=== PATIENT | female | born 1930 | race Caucasian/White ===

== ENCOUNTER 2016-12-14 18:06 | Emergency (ER) | payer MEDICARE, OTHER ==
[~2016-12-14 18:06] MED LIST: ALDACTONE100 MG PO; ATIVAN0.5 MG PO; CATAPRES0.1 MG PO; CHILDRENS CHEWA81 MG PO; CRESTOR10 MG PO; FEOSOL325 MG PO; GAS RELIEF80 MG PO; GLUCOPHAGE1000 MG PO; LANTUS100 UNIT/1 SQ; LASIX20 MG PO; LEVAQUIN500 MG PO; NORVASC5 MG PO; NOVOLOG100 UNIT/2 SQ; ONGLYZA5 MG PO; PLAVIX75 MG PO; POTASSIUM CHLO10 ME1 PO; SENSI CARE PET113 GM TOP; TRAMADOL HCL50 MG PO
[2016-12-14 19:20] LABS: BASO % 0.3 % (0.1-1.2); EOS # 0.1 10_X3_uL (0.0-0.4); EOS % 0.9 % (0.7-5.8); GRAN % 72.8 % (34.0-71.1); HEMATOCRIT 47.8 % (34-45); HEMOGLOBIN 15.3 g/dL (11.2-15.7); LYMPH # 1.3 10_X3_uL (1.2-3.7); LYMPH % 19.1 % (19.3-51.7); MEAN CORPUSCULAR HEMOGLOBIN 28.7 pg (27.0-33.0); MEAN CORPUSCULAR VOLUME 89.7 fL (79-95); MEAN PLATELET VOLUME 11.6 fl (7.5-11.5); MONO # 0.5 10_X3_uL (0.2-0.9); MONO % 6.9 % (4.7-12.5); PLATELET COUNT 112 x10_3/uL (182-369); RED BLOOD COUNT 5.33 x10_6/uL (3.9-5.2); RED CELL DISTRIBUTION WIDTH 16.7 % (11.7-14.4); WHITE BLOOD COUNT 6.8 x10_3/uL (4.0-10.0)
[2016-12-14 19:37] LABS: ALBUMIN 4.5 gm/dL (3.4-5.0); ALKALINE PHOSPHATASE 76 U/L (50-136); ALT/SGPT 11 U/L (3.5-33.9); AMYLASE 50 U/L (15.62-74.58); AST/SGOT 18 U/L (7.04-26.96); BILIRUBIN,TOTAL 0.58 mg/dL (0.0-1.0); BLOOD UREA NITROGEN 14 mg/dL (7-18); CALCIUM 8.4 mg/dL (8.7-10.7); CARBON DIOXIDE 28 mmol/L (21-32); CREATINE KINASE 76 U/L (21-215); CREATININE 0.6 mg/dL (0.6-1.3); GLUCOSE,RANDOM 230 mg/dL (70-99); LIPASE 23 U/L (6.75-60.75); SODIUM 143 mmol/L (136-145); TOTAL PROTEIN 7.2 gm/dL (6.4-8.2)
[2016-12-14 19:38] LABS: URINE BILIRUBIN NEGATIVE (NEGATIVE); URINE BLOOD 1+ (NEGATIVE); URINE GLUCOSE (UA) 100 mg/dL (NORMAL); URINE KETONE NEGATIVE (NEGATIVE); URINE LEUKOCYTE ESTERASE NEGATIVE (NEGATIVE); URINE NITRATE NEGATIVE (NEGATIVE); URINE PROTEIN 2+ (NEGATIVE); UROBILINOGEN NORMAL mg/dL (<1.0)
[2016-12-14 20:00] LABS: URINE RBC 0-5 /[HPF] (0-2); URINE SQUAMOUS EPITHELIAL CELL 0-10 /[HPF] (NONE SEEN); URINE WBC 0-5 /[HPF] (0-5)
[2016-12-14 20:03] LABS: URINE BACTERIA TRACE (NONE SEEN); URINE FINE GRANULAR CAST 0-2 /[HPF] (NONE SEEN)
== END 2016-12-14 23:55 | disposition short-term general hospital (02) ==
LOC: ER 18:06
PROVIDERS: Internal Medicine
DX: R11.2 Nausea with vomiting, unspecified (principal); R10.9 Unspecified abdominal pain; E87.6 Hypokalemia; K80.80 Other cholelithiasis without obstruction; E11.9 Type 2 diabetes mellitus without complications; I25.10 Atherosclerotic heart disease of native coronary artery without angina pectoris; Z95.1 Presence of aortocoronary bypass graft; Z95.5 Presence of coronary angioplasty implant and graft; Z79.899 Other long term (current) drug therapy; Z79.84 Long term (current) use of oral hypoglycemic drugs; Z79.02 Long term (current) use of antithrombotics/antiplatelets
CPT/HCPCS: 36415; 51701; 80053; 81001; 82150; 82271; 82550; 82553; 83605; 83690; 85025; 93005; 96365; 96375; 99070; 99284; 99285-25; J2765; J3480; J7040; Q9967